=== PATIENT | female | born 1995 | race Two or more races ===

== ENCOUNTER 2018-09-07 23:46 | Emergency (ER) | payer OTHER ==
[~2018-09-07] VITALS: Ht 167.6 cm; Wt 63.5 kg
[2018-09-08] MEDS ORDERED: CEFADROXIL500 MG PO (02:10)
[2018-09-08] MEDS ORDERED: KETO10TA2 PO (02:10)
== END 2018-09-08 02:28 | disposition home or self-care (01) ==
LOC: ER 23:46
DX: S61.221A Laceration with foreign body of left index finger without damage to nail, initial encounter (principal); W25.XXXA Contact with sharp glass, initial encounter; Y93.89 Activity, other specified; Y92.098 Other place in other non-institutional residence as the place of occurrence of the external cause; Y99.8 Other external cause status